=== PATIENT | female | born 1995 | race Two or more races ===

== ENCOUNTER 2020-06-12 16:56 | Emergency (ER) | payer MEDICAID, OTHER ==
[~2020-06-12] VITALS: Ht 167.6 cm; Wt 123.1 kg
--- NOTE | 2020-06-12 17:05 | NUR ---
PT TO RM VIA WHEELCHAIR, C COLLAR APPLIED IN TRIAGE
--- NOTE | 2020-06-12 17:23 | NUR ---
PT WITH 45LB BOX FALL ON HER, HIT BACK OF HEAD. PT C/O HEAD, NECK PAIN. -LOC, PT C/O DIZZINESS AND NAUSEA. THIS OCCURED 2 HRS AGO. ERPROVIDER IN TO EVAL PT. PT TO BP, CONT PULSE OX. AWAITING ORDERS
[2020-06-12] MEDS ORDERED: DIAZEPAM 5 MG TABLET PO ONE (18:00)
[2020-06-12] MEDS ORDERED: DIAZEPAM 5 MG TABLET ONE (18:09)
[2020-06-12 20:23] VITALS: BP 124/72
== END 2020-06-12 20:25 ==
LOC: ED 20:19
DX: S16.1XXA Strain of muscle, fascia and tendon at neck level, initial encounter (principal); S29.012A Strain of muscle and tendon of back wall of thorax, initial encounter; S00.93XA Contusion of unspecified part of head, initial encounter; R07.89 Other chest pain; R11.0 Nausea; R42 Dizziness and giddiness; X58.XXXA Exposure to other specified factors, initial encounter; Y93.89 Activity, other specified; Y92.89 Other specified places as the place of occurrence of the external cause; Y99.8 Other external cause status
CPT/HCPCS: 72072; 72125; 99284